=== PATIENT | female | born 1970 | race Caucasian/White ===

== ENCOUNTER 2017-08-25 09:22 | Emergency (ER) | payer BC ==
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
--- NOTE | 2017-08-26 09:01 | RADIOLOGY REPORT ---
EXAM: RIGHT KNEE HISTORY: RIGHT KNEE PAIN. TECHNIQUE: Four views of the right knee were obtained. Comparison: None. Encounter: Initial. FINDINGS: Negative for acute fracture or dislocation. Tricompartmental degenerative change with tricompartmental narrowing and spur formation. Well corticated ossific density associated with the anterior patella seen on the sunrise view likely relates to bony spur or sequelae of old trauma. This was also seen laterally. IMPRESSION: NEGATIVE FOR ACUTE ABNORMALITY. TRICOMPARTMENTAL DEGENERATIVE CHANGE. JOB NUMBER: [id number] MTDD
== END 2017-08-25 11:35 | disposition home or self-care (01) ==
LOC: ER 09:22
DX: S86.911A Strain of unspecified muscle(s) and tendon(s) at lower leg level, right leg, initial encounter (principal); W50.2XXA Accidental twist by another person, initial encounter; Y93.19 Activity, other involving water and watercraft; Y92.828 Other wilderness area as the place of occurrence of the external cause
CPT/HCPCS: 99283